=== PATIENT | male | born 1970 | race Caucasian/White ===

== ENCOUNTER 2020-01-24 22:17 | Emergency (ER) | payer MEDICARE, OTHER ==
[~2020-01-24] VITALS: Ht 172.7 cm; Wt 103.4 kg
[2020-01-24] MEDS ORDERED: Alprazolam1 MG PO (22:42)
[2020-01-24] MEDS ORDERED: Hydroxyzine HCl50 MG (22:42)
[2020-01-24] MEDS ORDERED: HYDROCODONE-AC1 EAC7 PO (22:43)
[2020-01-24] MEDS ORDERED: Ventolin5 MG/1 ML (22:43)
[2020-01-24] MEDS ORDERED: FLUTICASONE PRO16 GM (22:44)
[2020-01-24 23:02] LABS: BASOPHILS ABSOLUTE AUTO 0.04 K/mm3 (0.00-0.23); BASOPHILS PERCENT AUTO 1 % (0-2); EOSINOPHILS ABSOLUTE AUTO 0.14 K/mm3 (0.00-0.68); EOSINOPHILS PERCENT AUTO 2 % (0-6); Hematocrit 49.5 % (37.0-53.0); Hemoglobin 16.7 g/dL (13.5-17.5); IMMATURE GRAN ABSOLUTE AUTO 0.02 K/mm3 (0.00-0.10); IMMATURE GRAN PERCENT AUTO 0 % (0-1); LYMPHOCYTES ABSOLUTE AUTO 2.55 K/mm3 (0.84-5.20); LYMPHOCYTES PERCENT AUTO 34 % (21-46); MONOCYTES ABSOLUTE AUTO 0.63 K/mm3 (0.16-1.47); MONOCYTES PERCENT AUTO 9 % (4-13); Mean Corpuscular HGB 31.3 pg (26.0-34.0); Mean Corpuscular HGB Conc 33.7 g/dL (31.5-36.5); Mean Corpuscular Volume 93 fL (80-100); Mean Platelet Volume 8.9 fL (9.1-12.4); NEUTROPHILS ABSOLUTE AUTO 4.06 K/mm3 (1.96-9.15); NEUTROPHILS PERCENT AUTO 55 % (41-73); Platelet Count 256 K/mm3 (150-400); RDW Coefficient Variation 12.7 % (11.7-14.2); RDW Standard Deviation 43.7 fL (35.1-46.3); Red Blood Cell Count 5.34 M/mm3 (4.30-5.90); White Blood Cell Count 7.44 K/mm3 (4.00-11.30)
[2020-01-24 23:22] LABS: Alanine Aminotransfer (ALT/SGP 59 U/L (12-78); Albumin, Blood 3.5 g/dL (3.4-5.0); Alk Phos 68 U/L (50-136); Anion Gap 8 mmol/L (6-16); Aspartate Aminotrans (AST/SGOT 26 U/L (12-37); Bilirubin, Total 0.4 mg/dL (0.1-1.0); Blood Urea Nitrogen 13 mg/dL (8-24); Bun/Creatinine Ratio 15.5 (12.0-20.0); CO2, Blood 25 mmol/L (21-32); Calcium, Blood 8.4 mg/dL (8.5-10.1); Chloride, Blood 108 mmol/L (98-108); Creatinine, Blood 0.84 mg/dL (0.60-1.20); Globulin, Blood 3.4 g/dL (2.2-4.0); Glomerular Filtration Rate >60 (60-); Glucose, Blood 103 mg/dL (70-99); Potassium, Blood 3.5 mmol/L (3.5-5.5); Sodium, Blood 141 mmol/L (136-145); Total Protein, Blood 6.9 g/dL (6.4-8.2); Troponin I <0.015 ng/mL (0.000-0.040)
== END 2020-01-25 01:10 | disposition home or self-care (01) ==
LOC: ER 22:17
PROVIDERS: Emergency Medicine
DX: R07.9 Chest pain, unspecified (principal); R00.2 Palpitations; F32.9 Major depressive disorder, single episode, unspecified; F41.9 Anxiety disorder, unspecified; I10 Essential (primary) hypertension; F17.200 Nicotine dependence, unspecified, uncomplicated; Z88.4 Allergy status to anesthetic agent; Z79.899 Other long term (current) drug therapy
CPT/HCPCS: 36415; 71046; 80053; 84484; 85025; 93005; 93010; 99285-25

== ENCOUNTER 2021-07-20 11:43 | Emergency (ER) | payer MEDICARE, OTHER ==
[~2021-07-20] VITALS: Ht 170.2 cm; Wt 108.9 kg
[~2021-07-20 11:43] MED LIST: Alprazolam1 MG PO; FLUTICASONE PRO16 GM; HYDROCODONE-AC1 EAC7 PO; Hydroxyzine HCl50 MG; Ventolin5 MG/1 ML
[2021-07-20] MEDS ORDERED: LIDO700A20 TOP (13:06)
== END 2021-07-20 13:16 | disposition home or self-care (01) ==
LOC: ER 11:43
DX: S20.211A Contusion of right front wall of thorax, initial encounter (principal); I10 Essential (primary) hypertension; Z88.8 Allergy status to other drugs, medicaments and biological substances; Z79.899 Other long term (current) drug therapy; W18.2XXA Fall in (into) shower or empty bathtub, initial encounter
CPT/HCPCS: 71046; 96372; 99283-25; A9270; J1885

== ENCOUNTER 2023-02-03 08:50 | Day surgery (SDC) | payer MEDICARE, OTHER ==
[2023-02-03] VITALS (16 sets, daily range): BP systolic 103–142; BP diastolic 63–96
[~2023-02-03] VITALS: Ht 170.2 cm; Wt 113.9 kg
[~2023-02-03 08:50] MED LIST changes: +AMIT75 PO; +BUPR150ER PO; +Flovent Diskus50 MCG IH; +GABA300 PO; +HYDPAM50 PO; +LIDO700A20 TOP; +LOSA50 PO; +METO25ER PO; +Norco 10-325 T1 EACH PO; +ONDA4ODT MM
--- NOTE | 2023-02-03 10:04 | NUR ---
02/03/23 1004 Tawnya Gutierrez HISTORY, CHART, MEDICATIONS AND ALLERGIES REVIEWED BEFORE START OF PROCEDURE. PATIENT CONFIRMS NPO STATUS AND AGREES WITH SCHEDULED PROCEDURE. 3-LEAD EKG REVIEWED WITH PHYSICIAN PRIOR TO START OF PROCEDURE. MONITOR INTACT WITH CONTINUOUS PULSE OXIMETRY,CAPNOGRAPHY, 3-LEAD EKG, INTERMITTENT BP. SUPPLEMENTAL O2 TO BE TITRATED THROUGHOUT PROCEDURE TO MAINTAIN O2 SATURATION ABOVE 90%. PATIENT DETERMINED TO BE ASA APPROPRIATE FOR PROPOFOL SEDATION PRIOR TO START OF PROCEDURE BY .
--- NOTE | 2023-02-03 11:36 | NUR ---
Discharge instructions reviewed with patient. Patient verbalizes understanding. Copy given to patient to take home. Patient States Post-Procedure ride home has been arranged. Discharged via wheelchair to private car for ride home.
== END 2023-02-03 11:08 | disposition home or self-care (01) ==
LOC: ORSCMMR 08:50 → ORD 10:00 → ORSCMMR 11:08
PROVIDERS: Internal Medicine Gastroenterology
PROC: 0DBN8ZX Excision of Sigmoid Colon, Via Natural or Artificial Opening Endoscopic, Diagnostic (ICD-10-PCS; principal; 2023-02-03 10:00)
DX: Z12.11 Encounter for screening for malignant neoplasm of colon (principal); R19.5 Other fecal abnormalities; D12.5 Benign neoplasm of sigmoid colon; K63.5 Polyp of colon; F41.9 Anxiety disorder, unspecified; I10 Essential (primary) hypertension; E66.9 Obesity, unspecified; Z68.38 Body mass index [BMI] 38.0-38.9, adult; F17.210 Nicotine dependence, cigarettes, uncomplicated; Z79.899 Other long term (current) drug therapy
CPT/HCPCS: 88305; J2250; J2704; J7120

== ENCOUNTER 2024-07-03 13:31 | Inpatient (IN) | payer MEDICARE, OTHER ==
[2024-07-03] VITALS (15 sets, daily range): BP systolic 67–135; BP diastolic 42–112
[~2024-07-03] VITALS: Ht 172.7 cm; Wt 122.9 kg
[2024-07-03 14:28] LABS: BASOPHILS ABSOLUTE AUTO 0.05 K/mm3 (0.00-0.23); BASOPHILS PERCENT AUTO 1 % (0-2); EOSINOPHILS ABSOLUTE AUTO 0.09 K/mm3 (0.00-0.68); EOSINOPHILS PERCENT AUTO 1 % (0-6); Hematocrit 45.2 % (37.0-53.0); IMMATURE GRAN ABSOLUTE AUTO 0.04 K/mm3 (0.00-0.10); IMMATURE GRAN PERCENT AUTO 0 % (0-1); LYMPHOCYTES PERCENT AUTO 12 % (21-46); MONOCYTES ABSOLUTE AUTO 0.87 K/mm3 (0.16-1.47); MONOCYTES PERCENT AUTO 9 % (4-13); Mean Corpuscular HGB 32.6 pg (26.0-34.0); Mean Corpuscular HGB Conc 35.4 g/dL (31.5-36.5); Mean Corpuscular Volume 92 fL (80-100); Mean Platelet Volume 9.5 fL (9.1-12.4); NEUTROPHILS PERCENT AUTO 77 % (41-73); Platelet Count 280 K/mm3 (150-400); RDW Coefficient Variation 15.4 % (11.7-14.2); RDW Standard Deviation 50.5 fL (35.1-46.3); Red Blood Cell Count 4.91 M/mm3 (4.30-5.90); White Blood Cell Count 9.75 K/mm3 (4.00-11.30)
[2024-07-03 14:47] LABS: Albumin, Blood 3.3 g/dL (3.4-5.0); Albumin/Globulin Ratio 1.2 (0.8-1.8); Bilirubin, Total 1.6 mg/dL (0.1-1.0); Calcium, Blood 8.8 mg/dL (8.5-10.1); Creatinine, Blood 1.06 mg/dL (0.60-1.20); Globulin, Blood 2.8 g/dL (2.2-4.0); Potassium, Blood 4.3 mmol/L (3.5-5.5); Total Protein, Blood 6.1 g/dL (6.4-8.2)
[2024-07-03] MEDS ORDERED: dilTIAZem HCL 125 MG in Dextrose 5% 100 ML IV SCH (16:15)
[2024-07-03] MEDS ORDERED: Diltiazem HCl 5 MG / ML 5ML Vial IV ONE (16:15)
[2024-07-03] MEDS ORDERED: BUPROPION HCL200 M1 PO (17:25)
[2024-07-03] MEDS ORDERED: BREO ELLIPTA 11 EAC1 INH (17:25)
[2024-07-03] MEDS ORDERED: ATORVASTATIN CA20 MG PO (17:25)
[2024-07-03] MEDS ORDERED: Hydroxyzine HCl50 MG PO (17:26)
[2024-07-03] MEDS ORDERED: METOPROLOL TART5010 PO (17:27)
[2024-07-03] MEDS ORDERED: ALPRAZolam 0.5 MG Tab PO PRN (17:40)
[2024-07-03] MEDS ORDERED: Ondansetron HCl 2 MG / ML 2ML Vial IV PRN (17:40)
[2024-07-03] MEDS ORDERED: Albuterol 2.5 MG/3 ML VIAL INH PRN (17:40)
[2024-07-03] MEDS ORDERED: HYDROcodone 5-APAP 325 TAB PO PRN (17:45)
[2024-07-03] MEDS ORDERED: Metoprolol Tartrate 25 MG Tab PO SCH ×2 (18:00→21:00)
[2024-07-03] MEDS ORDERED: Furosemide 10 MG/ML 4ML Vial IV SCH (18:00)
--- NOTE | 2024-07-03 18:55 | NUR ---
PATIENT ADMIT TO PCU AT 1826. ABLE TO STAND AND TRANSFER TO BED. ALERT AND ORIENTED X4. DENIES DIZZINESS. TELE SHOWING AFIB. DENIES CHEST PAIN/PRESSURE/PALPITATIONS. SOB UPON TRANSFERING TO PCU BED. CARDIZEM GTT RUNNING AT 7.5 MG/HR UPON ADMIT. PATIENT SBP 120'S. WITH HR 120-140'S. THIS RN TITRATED CARDIZEM TO 10MG/HR, SEE FLOWSHEET CHARTING. PATIENT COMPLAINING OF NECK PAIN AND NAUSEA. ICE PACK PROVIDED FOR NECK PER PATIENT REQUEST AND IV ZOFRAN GIVEN FOR NAUSEA. PATIENT STATES NECK PAIN IS FROM SLEEPING ON ED BED. DENIES ABDOMINAL PAIN. SWOLLEN/TENDER/RED SCROTUM. PATIENT DENIES URINE RETENTION. STATES HE HAS NOT HAD A BOWEL MOVEMENT FOR A COUPLE DAYS BUT FEELS HUNGRY AND IS REQUESTING DINNER DESPITE NAUSEA. DINNER TRAY PROVIDED. NPO AT 9PM FOR FASTING LIPID PANEL IN AM. PUREWICK IN PLACE. BLOOD PRESSURE RE-CHECK AND TRENDING DOWN WITH SBP 70-90'S. HR REMAINS 120-130'S CARDIZEM TITRATED DOWN TO 5MG/HR. NIGHT NURSE TO BEDSIDE AND THIS RN REPORTED OFF.
[2024-07-03] MEDS ORDERED: NS 1,000 ML IV ONE ×2 (19:25→22:44)
[2024-07-03 19:50] LABS: Source, Urine Clean Catch
[2024-07-03 19:57] LABS: Appearance, Urine Clear (Clear); Bilirubin, Urine Neg (Neg); Blood, Urine Neg (Neg); Color, Urine Yellow (P-Yellow); Glucose Qualitative, Urine Neg (Neg); Ketones, Urine Neg (Neg); Leukocyte Esterase, Urine 1+ (Neg); Nitrite, Urine Neg (Neg); Protein, Urine 2+ (Neg); Urobilinogen, Urine 1+ (Normal)
[2024-07-03 20:06] LABS: Amorphous Light (0-Heavy); Bacteria Mod /hpf; Mucus Light (0-Heavy); Red Blood Cells, Urine 0-2 /hpf (0-2); Squamous Epithelial Cells Rare /hpf (Few); Transitional Epithelial Cells Rare /hpf (0-Rare)
[2024-07-03] MEDS ORDERED: Sennosides 8.6 MG Tab PO SCH (21:00)
[2024-07-03] MEDS ORDERED: buPROPion HCL 150 MG TAB.SR.12H PO SCH (21:00)
[2024-07-03] MEDS ORDERED: Amitriptyline HCl 25 MG Tab PO SCH (21:00)
[2024-07-03] MEDS ORDERED: EPINEPhrine HCl 0.1 MG/ML STE Water 10ML SYR IV ONE (21:02)
[2024-07-03] MEDS ORDERED: DOPamine 400 MG/Dextrose 250 ML Bag IV ONE (21:02)
[2024-07-03 21:18] LABS: U Amphetamine Screen Not Detected; U Barbituate Screen Not Detected; U Benzodiazapine Screen DETECTED; U Buprenorphine Screen Not Detected; U Cannabinoids Screen DETECTED; U Cocaine Screen Not Detected; U Methadone Screen Not Detected; U Methamphetamine Screen Not Detected; U Opiates Screen DETECTED; U Oxycodone Screen Not Detected; U Phencyclidine Screen Not Detected
[2024-07-03 21:59] LABS: Bun/Creatinine Ratio 14.4 (12.0-20.0); Calcium, Blood 8.2 mg/dL (8.5-10.1); Creatinine, Blood 1.32 mg/dL (0.60-1.20); Potassium, Blood 4.3 mmol/L (3.5-5.5)
--- NOTE | 2024-07-03 22:08 | NUR ---
AFTER RECEIVING REPORT FROM DAY SHIFT RN NOTICED PATIENT'S BLOOD PRESSURE TO BE LOW. 70/40'S. HEART IN THE 99-100'S. PATIENT STATED HE WAS NAUSEATED ALTHOUGH HE HAD RECEIVED 2 MG OF ZOFRAN RECENTLY. COMPLAINED OF HIS BELLY HURTING HIS NECK HURTING. NOT FEELING WELL. STATES "WHEN I CLOSE MY EYES ALL I SEE IS BLACK." TURNED OFF CARDIZEM DRIP. NOTIFIED OSCAR CHARGE NURSE OF FINDINGS. WE THEN NOTIFIED PULP ROLLER PROVIDER WHO CAME TO THE ROOM. IVF BOLUS INITIATED. NEW IV'S STARTED. LABS ORDERED DOPAMINE ORDERED AND STARTED, IV EPINEPHRINE 1 MG GIVEN O2 PER NC APPLIED SATURATIONS DROPPED TO THE 80'S. ICU TEAM ARRIVED ORDERS TO TRANSFER PATIENT TO ICU NOW FOR POSSIBLE CARDIOGENIC SHOCK. PATIENT REMAINED RESPONSIVE. BLOOD PRESSURE STARTED TO IMPROVE AFTER INTERVENTIONS. PATIENT WAS TRANSPORTED TO ICU 4 REPORT GIVEN TO TANGELA BINGHAM CARDIOGENIC SHOCK. . PATIENT REMAINED RESPONSIVE DURING THIS TIME. ORDER TO TRANSFER PATIENT TO ICU.
[2024-07-03] MEDS ORDERED: NS 1,000 ML IV SCH (22:45)
[2024-07-03] MEDS ORDERED: NS 250 ML IV ONE (22:45)
[2024-07-03] MEDS ORDERED: CeFAZolin Sodium 1,000 MG in NS 50 ML IV ONE (23:10)
[2024-07-04] VITALS (70 sets, daily range): BP systolic 72–160; BP diastolic 47–119
[2024-07-04] MEDS ORDERED: Morphine Sulfate 4 MG/1 ML Injection IV ONE (01:30)
[2024-07-04 03:47] LABS: Alanine Aminotransfer (ALT/SGP 217 U/L (12-78); Albumin/Globulin Ratio 1.2 (0.8-1.8); Alk Phos 96 U/L (50-136); Anion Gap 14 mmol/L (3-11); Aspartate Aminotrans (AST/SGOT 240 U/L (12-37); Bilirubin, Total 2.8 mg/dL (0.1-1.0); Blood Urea Nitrogen 21 mg/dL (8-24); Bun/Creatinine Ratio 11.7 (12.0-20.0); CHOL/HDL RATIO 3.6; CO2, Blood 21 mmol/L (21-32); Calcium, Blood 7.8 mg/dL (8.5-10.1); Chloride, Blood 93 mmol/L (98-108); Cholesterol 94 mg/dL (50-200); Globulin, Blood 2.6 g/dL (2.2-4.0); Glomerular Filtration Rate 44 (60-); Glucose, Blood 121 mg/dL (70-99); HDL Cholesterol 26 mg/dL (>39); LDL/HDL RATIO 2.1; Low Density Lipoprotein Chol 55 mg/dL (0-110); Potassium, Blood 5.8 mmol/L (3.5-5.5); Sodium, Blood 122 mmol/L (136-145); Total Protein, Blood 5.6 g/dL (6.4-8.2); Triglycerides 67 mg/dL (30-160); Very Low Density Lipoprot Chol 13 mg/dL (6-32)
--- NOTE | 2024-07-04 06:10 | NUR ---
SHIFT SUMMARY PT ARRIVES AT BEGINNING OF SHIFT AN EMERGENT TRANSFER FROM PCU. ON ARRIVAL, PT BP IS LOW AND SKIN IS FLUSHED. PT RESPONSIVE TO QUESTIONS BUT HAS SOME CONFUSION WITH TIME. PTs HEART RHYTHM AND RATE IS AFIB IN THE 130s TO 150s AND LOW BP WITH MAPS BELOW 65. PTs DOBUTAMINE IS STOPPED AND PT PUT ONTO LEVOPHED. THIS NURSE IS TOLD AND AGREES WITH CASH SHORTAGE INVESTIGATOR THAT ISSUE IS LIKELY UNDIAGNOSED CHF EXACERBATED BY CARDIZEM DRIP. PT WAS TAKEN OFF CARDIZEM PRIOR TO ARRIVAL TO UNIT. PT EVENTUALLY CLEARS AND IS ABLE TO ANSWER QUESTIONS A&OX4. PT REQUESTS SOME FOOD PRIOR TO BEING NPO AND IS ABLE TO EAT PEACHES. AT APPROXIMATELY 2200 PT BEGINS TO FEEL SYMPTONS SIMILAR TO THOSE HE HAD PRIOR TO EVENT IN PCU THAT BROUGHT HIM TO ICU. THIS NURSE CONTACTS CASH SHORTAGE INVESTIGATOR FOR ORDERS AT WHICH POINT EKG AND TROPONIN ARE ORDERED. NEEDS FOR LEVOPHED CONTINUE TO RISE AND IT IS DECIDED THAT A CENTRAL LINE WILL BE NECESSARY. CENTRAL LINE IS PLACED AND PT RESPONDS POSITIVELY TO INCRESE IN LEVOPHED. CT PE STUDY IS ALSO OBTAINED ON PHYSICIANS ORDERS. PT IS NOW A&O X 4. PT IS RESTING IN ROOM WITH SOME COMPLAINTS OF CHRONIC BACK PAIN. WILL CONTINUE TO MONITOR UNTIL REPORT PASSED TO DAY SHIFT TEAM.
--- NOTE | 2024-07-04 07:00 | NUR ---
ASSUMPTION OF CARE PT RECEIVING LEVOPHED 16MCG/MIN AND NS 75ML/HR. HE WAKENS EASILY TO VERBAL STIMULI. HE IS ON 2L NC. PT REPORTS FEELING BETTER THAN LAST NIGHT. AFIB ON MONITOR WITH RATE IN 100S-130S. BED IN LOW POSITION, CALL LIGHT WITHIN REACH.
--- NOTE | 2024-07-04 08:30 | NUR ---
BRUNILDA MILLER TRANSFER, PT CONCERNED ABOUT [facility], CALLED SECURITY WHO TOOK IT TO PLACE IN [facility].
[2024-07-04] MEDS ORDERED: Enoxaparin 40 MG/0.4 ML SYR SC SCH (09:00)
[2024-07-04] MEDS ORDERED: Rivaroxaban 10 MG Tab PO SCH ×2 (09:00)
[2024-07-04] MEDS ORDERED: Calcium Carbonate 500 MG Tab Chew PO PRN (13:20)
[2024-07-04] MEDS ORDERED: Empagliflozin 10 MG TAB PO SCH (14:00)
[2024-07-04] MEDS ORDERED: Spironolactone 12.5 MG TAB PO SCH (14:00)
[2024-07-04] MEDS ORDERED: Famotidine 10 MG/ML 2ML Vial IV ONE (14:40)
[2024-07-04] MEDS ORDERED: Mag Hydrox/Al Hydrox/Simeth 18 ML,Lidocaine 2% Viscous Soln 9 ML,Atropine/Scopalam/Hyos... PO ONE (14:50)
--- NOTE | 2024-07-04 15:00 | NUR ---
UPDATE PT C/O 10/19 CHEST PAIN. PT PREVIOUSLY C/O HEARTBURN AND MEDICATED WITH TUMS PER EMAR. WHEN ASKED TO DESCRIBE THE CHEST PAIN HE STS IT FEELS LIKE "BAD HEARTBURN". HE POINTS TO MIDSTERUM AND RADIATES INTERMITTENTLY TO R SIDE. PAIN DOES NOT CHANGE WITH INSPIRATION/EXPIRATION OR MOVEMENT. PT REQUESTS PEPCID THAT HE TAKES AT HOME. PROVIDER NOTIFIED AND ORDER RECEIVED. REPEAT EKG DONE.
--- NOTE | 2024-07-04 15:45 | NUR ---
Met with pt this morning, he appeared SOB and anxious. He stated he was going to leave because his dog was home alone and needed to be cared for. I spent time brain-storming with him and we came up with a plan for his dog. He has a neighbor to call who knows his dog well and will be able to feed him and look after him while the patient is in the hospital. Pt states he is shocked to hear about the heart failure. He is willing to continue with conversations on lifestyle changes. Plan to see pt again tomorrow.
[2024-07-04] MEDS ORDERED: Furosemide 10 MG/ML 4ML Vial IV SCH (18:00)
--- NOTE | 2024-07-04 18:34 | NUR ---
SHIFT SUMMARY PT RECEIVING LEVOPHED 4MCG/MIN. PT IS A&OX4. HE PARTICIPATES IN CONVERSATION AND CARE ABLE. HE HAS BEEN ON RA THROUGHOUT THE DAY. HE BECOMES DYSPNEIC WITH EXERTION. AFIB ON MONITOR WITH RATE IN 120S-130S. LEVOPHED TITRATED DOWN THROUGHOUT THE SHIFT. PT TOLERATING PO DIET WELL. EARLIER IN SHIFT PT C/O HEARTBURN WHICH RESOLVED AFTER PEPCID. PT HAS BEEN ABLE TO VOID SEVERAL TIMES IN THE URINAL. BED IN LOW POSITION, CALL LIGHT WITHIN REACH.
--- NOTE | 2024-07-04 20:11 | NUR ---
ASSUME CARE: BEDSIDE REPORT RECIEVED FROM CASSIE BINGHAM. PT A/Ox4 AND ABLE TO MAKE NEEDS KNOWN. SBP 110s, MAP>65. LEVOPHED GTT INTIALLY AT 4 MCG/MIN, SEE FLOWSHEET FOR TITRATIONS. MONITOR SHOWS AFIB RYTHM RATE 120s-130s. CASSIE RN STATES IS AWARE OF RATE. SPO2>90% ON RA. PT DENIES CP OR PRESSURE. PT ABLE TO AMBULATE WITH ASSISTANCE AND USE URINAL AT BEDSIDE WITH ASSISTANCE. CALL LIGHT IN REACH. WILL UPDATED NEEDED.
[2024-07-04 22:51] LABS: Bun/Creatinine Ratio 16.1 (12.0-20.0); Calcium, Blood 8.1 mg/dL (8.5-10.1); Creatinine, Blood 1.61 mg/dL (0.60-1.20); Potassium, Blood 4.3 mmol/L (3.5-5.5)
[2024-07-05] VITALS (33 sets, daily range): BP systolic 87–160; BP diastolic 56–126
--- NOTE | 2024-07-05 05:28 | NUR ---
SHIFT SUMMARY: PT A/Ox4 AND PLEASANT W/CARE THROUGHOUT THE NIGHT. SBP 90s-100s, MAP>65. LEVOPHED GTT TITRATED OFF. MONITOR SHOWS AFIB W/ RATE OF 120s-140s, OCCASIONAL RATE UP TO 160s. SPO2>90% ON RA, PT DESATS WITH SLEEP TO 85-87%, 2L NC PLACED FOR SLEEP. PT ABLE TO STAND AT BEDSIDE AND USE URINAL W/ASSISTANCE. CALL LIGHT IN REACH. WILL REPORT TO ONCOMING RN.
[2024-07-05 08:11] LABS: BASOPHILS ABSOLUTE AUTO 0.03 K/mm3 (0.00-0.23); BASOPHILS PERCENT AUTO 0 % (0-2); EOSINOPHILS ABSOLUTE AUTO 0.12 K/mm3 (0.00-0.68); EOSINOPHILS PERCENT AUTO 2 % (0-6); Hematocrit 44.3 % (37.0-53.0); IMMATURE GRAN ABSOLUTE AUTO 0.03 K/mm3 (0.00-0.10); IMMATURE GRAN PERCENT AUTO 0 % (0-1); LYMPHOCYTES ABSOLUTE AUTO 1.37 K/mm3 (0.84-5.20); LYMPHOCYTES PERCENT AUTO 18 % (21-46); MONOCYTES ABSOLUTE AUTO 0.65 K/mm3 (0.16-1.47); MONOCYTES PERCENT AUTO 9 % (4-13); Mean Corpuscular HGB 31.9 pg (26.0-34.0); Mean Corpuscular HGB Conc 33.9 g/dL (31.5-36.5); Mean Corpuscular Volume 94 fL (80-100); Mean Platelet Volume 9.3 fL (9.1-12.4); NEUTROPHILS ABSOLUTE AUTO 5.36 K/mm3 (1.96-9.15); NEUTROPHILS PERCENT AUTO 71 % (41-73); Platelet Count 185 K/mm3 (150-400); RDW Coefficient Variation 15.3 % (11.7-14.2); White Blood Cell Count 7.56 K/mm3 (4.00-11.30)
[2024-07-05 08:23] LABS: Albumin/Globulin Ratio 1.2 (0.8-1.8); Bilirubin, Total 1.3 mg/dL (0.1-1.0); Bun/Creatinine Ratio 17.9 (12.0-20.0); Creatinine, Blood 1.4 mg/dL (0.60-1.20); Globulin, Blood 2.4 g/dL (2.2-4.0); Potassium, Blood 4.2 mmol/L (3.5-5.5); Total Protein, Blood 5.4 g/dL (6.4-8.2)
[2024-07-05] MEDS ORDERED: Furosemide 10 MG / ML 2ML Vial IV SCH (09:00)
--- NOTE | 2024-07-05 18:22 | NUR ---
SUMMARY PT A/O X4. OOB TO CHAIR AND TO STAND TO USE THE URINAL SEVERAL TIMES. GETTING MORE STEADY THE DAY GOES ON. ON AMIODORONE GTT FOR AFIB RVR. RATE STILL IN THE 120'S. PT HAS SWELLING OF LEGS AND SCROTUM IS VERY SWOLLEN. GETTING LASIX. TRANSFERING TO PCU 13, REPORT GIVEN TO NADINE BINGHAM.
--- NOTE | 2024-07-05 20:00 | NUR ---
ASSUMPTION OF CARE NOTE A/Ox4 AND COOPERATIVE WITH CARE. ANSWERS QUESTIONS APPROPRIATELY AND ABLE TO MAKE HIS NEEDS KNOWN. CARDIAC, TELE SHOWS AFIB WITH HR RANGING 120-140'S. INCREASES TO 50-160'S WITH MINIMAL EXERTION. DENIES CP, PRESSURE OR PALPITATIONS. BLE WELL SCROTAL EDEMA NOTED. RESPIRATORY, MAINTAINS SPO2 >92% ON RA WITH NO REPORTS OF SOB OR DYSPNEA WHILE AT REST. REPORTS MINOR SOB WITH EXERTION WHEN HR IS ELEVATED. GI/, ABLE TO USE URINAL AT BEDSIDE PRODUCING CLEAR YELLOW URINE. ABD WITH MODERATE DISTENTION NOTED, BUT DENIES N/V/D OR ABD PAIN. SKIN OVERALL C/D/I. AMIO gtt INFUSING IN LFA PIV ORDERED PER EMAR. VSS, NADN OF THIS NOTE.
[2024-07-06] VITALS (9 sets, daily range): BP systolic 103–143; BP diastolic 67–110
[2024-07-06 04:05] LABS: BASOPHILS ABSOLUTE AUTO 0.05 K/mm3 (0.00-0.23); BASOPHILS PERCENT AUTO 1 % (0-2); EOSINOPHILS ABSOLUTE AUTO 0.04 K/mm3 (0.00-0.68); EOSINOPHILS PERCENT AUTO 1 % (0-6); Hematocrit 43.5 % (37.0-53.0); Hemoglobin 15.5 g/dL (13.5-17.5); IMMATURE GRAN ABSOLUTE AUTO 0.05 K/mm3 (0.00-0.10); IMMATURE GRAN PERCENT AUTO 1 % (0-1); LYMPHOCYTES ABSOLUTE AUTO 1.18 K/mm3 (0.84-5.20); LYMPHOCYTES PERCENT AUTO 14 % (21-46); MONOCYTES PERCENT AUTO 8 % (4-13); Mean Corpuscular HGB 32.6 pg (26.0-34.0); Mean Corpuscular HGB Conc 35.6 g/dL (31.5-36.5); Mean Corpuscular Volume 91 fL (80-100); Mean Platelet Volume 9.7 fL (9.1-12.4); NEUTROPHILS ABSOLUTE AUTO 6.55 K/mm3 (1.96-9.15); NEUTROPHILS PERCENT AUTO 76 % (41-73); Platelet Count 183 K/mm3 (150-400); RDW Coefficient Variation 15.3 % (11.7-14.2); RDW Standard Deviation 50.4 fL (35.1-46.3); Red Blood Cell Count 4.76 M/mm3 (4.30-5.90); White Blood Cell Count 8.57 K/mm3 (4.00-11.30)
[2024-07-06 04:29] LABS: Bun/Creatinine Ratio 20.5 (12.0-20.0); Calcium, Blood 8.2 mg/dL (8.5-10.1); Creatinine, Blood 1.22 mg/dL (0.60-1.20); Potassium, Blood 3.8 mmol/L (3.5-5.5)
--- NOTE | 2024-07-06 05:28 | NUR ---
SHIFT SUMMARY NO ACUTE CHANGES SINCE ASSUMPTION OF CARE NOTE. SEE NOTE FOR DETAILS. CONTINUES TO BE AFIB RANGING 120-140'S WITH INTERMITTENT JUMPS INTO 150-160'S WITH MINIMAL EXERTION. CONTINUES TO DENY CP, PRESSURE OR PALPTIATIONS DURING THESE EPISODES. RESTLESS DURING THE NIGHT ATTEMPTING TO GET COMFORTABLE. AMIO gtt CONTINUES TO INFUSE ORDERED PER EMAR. NO OTHER ORDERS AT THIS TIME, WILL REPORT TO ONCOMING RN. [place] OF THIS NOTE.
--- NOTE | 2024-07-06 08:29 | NUR ---
AM NOTE PT ALERT, ORIENTED X4; ABLE TO MAKE NEEDS KNOWN, CALM AND COOPERATIVE WITH CARE. PT RESTING IN BED, UP IND IN ROOM. PT DENIES PAIN, CHEST PAIN/PRESSURE, SOB, NAUSEA, DIZZINESS AND NUMB/TINGLING. TELE AFIB 120-140', BP STABLE, AMIO GTT INFUSING PER ORDERS. ABD MILD DISTENTION, SOFT, NONTENTER WITH HYPOACTIVE BT. SPO2 >90% ON RA, WHILE SLEEPING BREATHING SHALLOW. EDEMA NOTED TO BLE +3, BUE AND SCROTUM. OTHER VSS. NO OTHER ACUTE CHANGES NOTED. PT REMAINS NPO OTHER THAN WATER FOR STRESS TEST. PT UNABLE TO SLEEP LAST NIGHT ASKING FOR LESS FREQUENT VISITS THIS AM SO ATTEMPT TO SLEEP. WILL CONITNUE TO MONITOR.
[2024-07-06] MEDS ORDERED: Amiodarone HCl 200 MG Tab PO SCH (10:00)
[2024-07-06] MEDS ORDERED: Metoprolol Succinate 50 MG TABCR PO SCH (18:00)
[2024-07-06] MEDS ORDERED: Furosemide 10 MG/ML 4ML Vial IV SCH (18:00)
--- NOTE | 2024-07-06 18:05 | NUR ---
Shift Summary No acute changes during shift. More alert, this afternoon, slept most of the morning. First part of the stress test completed this am. Plans for NPO after breakfast, other than water; no caffine after 1900 this evening. Other vss. No other acute changes noted. Will continue to monitor.
[2024-07-07] VITALS (25 sets, daily range): BP systolic 80–137; BP diastolic 40–101
[2024-07-07 02:31] LABS: Bun/Creatinine Ratio 19.5 (12.0-20.0); Calcium, Blood 8.7 mg/dL (8.5-10.1); Creatinine, Blood 1.33 mg/dL (0.60-1.20); Potassium, Blood 3.9 mmol/L (3.5-5.5)
--- NOTE | 2024-07-07 02:37 | NUR ---
UPDATE AT AROUND 2230 PT STARTED TO BECOME MORE CONFUSED AND IMPULSIVE. PT STARTED TO GET OUT OF BED WITHOUT USING CALL LIGHT AND ATTEMPTING TO FIND DOG. PT UNABLE TO FOLLOW SIMPLE DIRECTIONS SUCH LAYAING INBED, PT STOOD TO WALK TO CHAIR INSTEAD. PT ACKOWLEDGES THAT HE IS FEELING "FOGGY HEADED". PT IS ABLE TO ANSWER ALL ORIENTATION QUESTIONS CORRECTLY. PT HEART RATE CONSISTANTLY 130S- 160S WITH ACTIVITY. PT BP AVERAGING 100S SYSTOLIC NOW. PT SKIN MOTTLED ON ABD, BLE, AND ARMS. CRACKLES AT THE BASES OF PT LUNGS. SANKET TO PT ROOM AFTER REVEIWING CHART. CONCERNS FOR PT NOT PERFUSING CORRECTLY. MOVING PT TO ICU. PCU AND ICU CHARGE NURSE AWARE. REPORT GIVEN TO VLADIMIR BINGHAM. PT TOLERATED MOVE WELL.
[2024-07-07 02:48] LABS: BASOPHILS ABSOLUTE AUTO 0.06 K/mm3 (0.00-0.23); BASOPHILS PERCENT AUTO 1 % (0-2); EOSINOPHILS ABSOLUTE AUTO 0.04 K/mm3 (0.00-0.68); EOSINOPHILS PERCENT AUTO 0 % (0-6); Hematocrit 51.2 % (37.0-53.0); Hemoglobin 17.7 g/dL (13.5-17.5); IMMATURE GRAN ABSOLUTE AUTO 0.09 K/mm3 (0.00-0.10); IMMATURE GRAN PERCENT AUTO 1 % (0-1); LYMPHOCYTES ABSOLUTE AUTO 1.15 K/mm3 (0.84-5.20); LYMPHOCYTES PERCENT AUTO 11 % (21-46); MONOCYTES ABSOLUTE AUTO 0.82 K/mm3 (0.16-1.47); MONOCYTES PERCENT AUTO 8 % (4-13); Mean Corpuscular HGB 32.1 pg (26.0-34.0); Mean Corpuscular HGB Conc 34.6 g/dL (31.5-36.5); Mean Corpuscular Volume 93 fL (80-100); Mean Platelet Volume 9.3 fL (9.1-12.4); NEUTROPHILS ABSOLUTE AUTO 8.19 K/mm3 (1.96-9.15); NEUTROPHILS PERCENT AUTO 79 % (41-73); Platelet Count 180 K/mm3 (150-400); RDW Coefficient Variation 15.7 % (11.7-14.2); RDW Standard Deviation 52.9 fL (35.1-46.3); Red Blood Cell Count 5.52 M/mm3 (4.30-5.90); White Blood Cell Count 10.35 K/mm3 (4.00-11.30)
[2024-07-07 03:41] LABS: PCO2 Venous 36.9 mmHg (38-42); pH Blood Venous 7.43 (7.34-7.37)
[2024-07-07 03:42] LABS: Base Excess Venous 0.4 mmol/L; Bicarbonate Venous 24.7 mmol/L (24.0-30.0)
[2024-07-07] MEDS ORDERED: LORazepam 2 MG/ML 1ML Injection IV ONE (04:15)
[2024-07-07] MEDS ORDERED: Digoxin 0.25 MG/ML 2ML Amp IV ONE (04:50)
[2024-07-07] MEDS ORDERED: NS 250 ML IV ONE (06:40)
--- NOTE | 2024-07-07 08:40 | NUR ---
[place] of care: Patient alert & oriented to person, place, time. Confused as to why he is in the hospital. Pleasant & cooperative. He is in normal sinus tach in the low 100s, SBP 115. Does have significant bilat lower extremity edema as well as scrotal edema. Pulses all palpable but weak in feet. On room air with clear lung sounds. Voiding in urinal. NPO pending stress test later today. PIV x1 in place. Will continue to monitor.
[2024-07-07] MEDS ORDERED: Furosemide 10 MG / ML 2ML Vial IV SCH (09:00)
[2024-07-07 09:20] LABS: Bun/Creatinine Ratio 21.4 (12.0-20.0); Calcium, Blood 8.4 mg/dL (8.5-10.1); Creatinine, Blood 1.26 mg/dL (0.60-1.20); Potassium, Blood 4.5 mmol/L (3.5-5.5)
[2024-07-07] MEDS ORDERED: Lidocaine 2% Jelly Uro-Jet UR ONE (10:30)
[2024-07-07] MEDS ORDERED: Digoxin 0.25 MG/ML 2ML Amp IV SCH (11:00)
[2024-07-07] MEDS ORDERED: Regadenoson 0.4 MG/5 ML SYRINGE ONE (12:25)
[2024-07-07] MEDS ORDERED: Caffeine Citrated 60 MG/3 ML Vial ONE (12:25)
--- NOTE | 2024-07-07 15:32 | NUR ---
Patient returned back from NM test and stated he wanted to leave. This RN discussed plan with patient and he kindly stated that he has stayed longer than he has wanted and since the images have been obtained, he would like to leave. Call placed to Dr Mcdermott to notify, who quickly presented to bedside to discuss with patient. Patient adamantly stated he wanted to leave. He signed AMA paperwork and is currently looking for a contact to pick him up.
--- NOTE | 2024-07-07 16:05 | NUR ---
Patient decided to leave AMA. Dr. Mcdermott notified and came to speak to patient. Pt advised on policy regarding leaving AMA & verbalized understanding. Paperwork signed. Vital signs stable prior to discharge. Escorted out in wheelchair.
[2024-07-08] MEDS ORDERED: Digoxin 0.25 MG Tab PO SCH (09:00)
== END 2024-07-07 15:55 | disposition left against medical advice (07) | DRG 291 ==
LOC: ER 13:31 → ERHOLD 15:44 → ICUE 15:44 → PCU 18:26 → ICUE 20:12 → PCU 07-05 18:09 → ICUE 07-07 02:56
PROVIDERS: Family Medicine; Internal Medicine; Nurse Practitioner Acute Care; Physician Assistant; Student in an Organized Health Care Education/Training Program; ADMIT Family Medicine
PROC: 3E033XZ Introduction of Vasopressor into Peripheral Vein, Percutaneous Approach (ICD-10-PCS; principal; 2024-07-03)
PROC: 02HV33Z Insertion of Infusion Device into Superior Vena Cava, Percutaneous Approach (ICD-10-PCS; 2024-07-03)
DX: I11.0 Hypertensive heart disease with heart failure (principal); I50.23 Acute on chronic systolic (congestive) heart failure; R57.0 Cardiogenic shock; N17.9 Acute kidney failure, unspecified; E87.1 Hypo-osmolality and hyponatremia; E87.21 Acute metabolic acidosis; I47.20 Ventricular tachycardia, unspecified; I48.91 Unspecified atrial fibrillation; R74.01 Elevation of levels of liver transaminase levels; M54.9 Dorsalgia, unspecified; G89.29 Other chronic pain; I95.2 Hypotension due to drugs; T46.1X5A Adverse effect of calcium-channel blockers, initial encounter; Z53.29 Procedure and treatment not carried out because of patient's decision for other reasons; F43.10 Post-traumatic stress disorder, unspecified; F41.9 Anxiety disorder, unspecified; F32.A Depression, unspecified; E78.5 Hyperlipidemia, unspecified; E66.813 Obesity, class 3; Z98.890 Other specified postprocedural states; Z87.891 Personal history of nicotine dependence; Z79.899 Other long term (current) drug therapy; Z88.5 Allergy status to narcotic agent; I42.0 Dilated cardiomyopathy
CPT/HCPCS: 36415; 36556; 71045; 71260; 76870; 78452; 80048; 80053; 80061; 81001; 82140; 82803; 82947; 83036; 83605; 83735; 83880; 84145; 84443; 84484; 85025; 87086; 93005; 93010; 93017; 94760; 96372; 96374; 96375; 96376; 99285-25; A9270; A9500; C1751; C8929; G0378; J0171; J0282; J0690; J0706; J1160; J1265; J1650; J1940; J2060; J2270; J2405; J2785; J7030; J7050; J7060; Q9957; Q9967

== ENCOUNTER 2024-07-25 10:15 | Inpatient (IN) | payer MEDICARE, OTHER ==
[~2024-07-25] VITALS: Wt 70.9 kg
[~2024-07-25 10:15] MED LIST changes: +ATORVASTATIN CA20 MG PO; +BREO ELLIPTA 11 EAC1 INH; +BUPROPION HCL200 M1 PO; +Hydroxyzine HCl50 MG PO; +METO100 PO; -Norco 10-325 T1 EACH PO; +Norco 5-325 Ta1 EACH PO
[2024-07-25] MEDS ORDERED: FURO40 PO (16:39)
[2024-07-25] MEDS ORDERED: POTA10T PO (16:40)
--- NOTE | 2024-07-25 16:43 | NUR ---
ADMISSION: PT DIRECT ADMIT FROM TO PCU 12 @1643. PT ALERT AND ORIENTED X4, ABLE TO FOLLOW COMMANDS AND MAKE NEEDS KNOWN. ANXIOUS AT TIMES. STRENGTH EQUAL BILATERALLY. BP STABLE. HR AFIB 190'S- CARDIOLOGY CONSULTED. PLAN FOR JN CARDIOVERSION IN AM. DR OLIVER AND RESIDENT AT BEDSIDE AT THIS TIME. AFEBRILE. SPO2 >96% ON ROOM AIR. LUNG SOUNDS CLEAR IN UPPER, DIM IN BASES. ABD DISTENDED, BOWEL SOUNDS +. ABDOMEN SLIGHTLY DISCOLORED, PT STATES BASELINE. +3 EDEMA NOTED IN BLE. PULSES PALPABLE THROUGHOUT. PT CONT OF URINE/BOWEL. PT NPO @0000 FOR PROCEDURE IN AM. PT ORIENTED TO ROOM AND CALL LIGHT SYSTEM. BED IN LOW, CALL LIGHT IN REACH.
[2024-07-25 16:48] VITALS: BP 132/104
[2024-07-25] MEDS ORDERED: Furosemide 10 MG/ML 4ML Vial IV SCH (17:00)
[2024-07-25] MEDS ORDERED: Metoprolol Succinate 50 MG TABCR PO SCH (17:00)
[2024-07-25] MEDS ORDERED: Metoprolol Succinate 25 MG TABCR PO ONE (17:30)
[2024-07-25] MEDS ORDERED: MethylPREDNISolone Sod Succ 125 MG Vial IV STA (17:48)
[2024-07-25] MEDS ORDERED: DiphenhydrAMINE HCl 50 MG/ML 1ML Vial IV STA (17:49)
[2024-07-25] MEDS ORDERED: Famotidine 10 MG/ML 2ML Vial IV STA (17:49)
[2024-07-25 17:52] LABS: BASOPHILS ABSOLUTE AUTO 0.04 K/mm3 (0.00-0.23); BASOPHILS PERCENT AUTO 1 % (0-2); EOSINOPHILS ABSOLUTE AUTO 0.13 K/mm3 (0.00-0.68); EOSINOPHILS PERCENT AUTO 2 % (0-6); Hematocrit 46.4 % (37.0-53.0); Hemoglobin 15.9 g/dL (13.5-17.5); IMMATURE GRAN ABSOLUTE AUTO 0.02 K/mm3 (0.00-0.10); IMMATURE GRAN PERCENT AUTO 0 % (0-1); LYMPHOCYTES PERCENT AUTO 24 % (21-46); MONOCYTES ABSOLUTE AUTO 0.77 K/mm3 (0.16-1.47); MONOCYTES PERCENT AUTO 10 % (4-13); Mean Corpuscular HGB 31.9 pg (26.0-34.0); Mean Corpuscular HGB Conc 34.3 g/dL (31.5-36.5); Mean Corpuscular Volume 93 fL (80-100); Mean Platelet Volume 10.4 fL (9.1-12.4); NEUTROPHILS ABSOLUTE AUTO 4.77 K/mm3 (1.96-9.15); NEUTROPHILS PERCENT AUTO 63 % (41-73); Platelet Count 266 K/mm3 (150-400); RDW Coefficient Variation 16.6 % (11.7-14.2); RDW Standard Deviation 55.2 fL (35.1-46.3); Red Blood Cell Count 4.99 M/mm3 (4.30-5.90); White Blood Cell Count 7.53 K/mm3 (4.00-11.30)
[2024-07-25] MEDS ORDERED: DiphenhydrAMINE HCl 50 MG/ML 1ML Vial IV PRN (18:00)
--- NOTE | 2024-07-25 18:02 | NUR ---
UPDATE ORDERS RECEIVED FOR AMIO BOLUS. THIS RN STARTED AMIO BOLUS AT APPROX 1750. PT BECOMING IMMEEDIATELY FLUSHED, WARM TO TOUCH. PT COUGHING, EXPRESSING TO THIS RN "IT IS BECOMING HARD TO BREATH" AMIO BOLUS STOPPED, IV LINE FLUSHED. X RAY PHYSICIAN AT BEDSIDE. NON REBREATHER PLACED ON PT. BLOOD PRESSURE AND SPO2 STABLE. CALL PLACED TO BOTH ASSEMBLER DC FIELD RING AND HOSPITALIST. AMIO D/C. NEW ORDERS PLACED FOR ADVERSE REACTION. ASSEMBLER DC FIELD RING TO ROUND ON PT AFTER CLINIC.
[2024-07-25 18:17] LABS: Albumin, Blood 3.5 g/dL (3.4-5.0); Albumin/Globulin Ratio 1.1 (0.8-1.8); Bun/Creatinine Ratio 10.3 (12.0-20.0); Calcium, Blood 9.3 mg/dL (8.5-10.1); Creatinine, Blood 1.74 mg/dL (0.60-1.20); Globulin, Blood 3.3 g/dL (2.2-4.0); Magnesium, Blood 1.3 mg/dL (1.6-2.4); Potassium, Blood 3.6 mmol/L (3.5-5.5); Total Protein, Blood 6.8 g/dL (6.4-8.2)
[2024-07-25] MEDS ORDERED: Magnesium Sul 4 GM/Water100 ML 100 ML IV ONE (18:35)
[2024-07-25] MEDS ORDERED: Potassium Chloride 40 MEQ in NS 250 ML IV ONE (18:45)
--- NOTE | 2024-07-25 19:48 | NUR ---
PHYSICIAN COMMUNICATION CONTACTED TOGGLE PRESS FOLDER AND FEEDER RESIDENT, DR MIKE, TO NOTIFY HER THAT THE PATIENT IS EXPERIENCING BACK PAIN WHICH IS CHRONIC. ASKED IF WE CAN RESTART HIS HOME PAIN MEDS, DR MIKE OKAYED ORDERS.
[2024-07-25] MEDS ORDERED: HYDROcodone 10-APAP 325 TAB PO PRN (19:50)
[2024-07-25] MEDS ORDERED: Lidocaine 4% 1 Patch TOP SCH (19:50)
[2024-07-25 20:23] VITALS: BP 129/106
[2024-07-25] MEDS ORDERED: Apixaban 5 MG Tab PO SCH (21:00)
[2024-07-25] MEDS ORDERED: Famotidine 10 MG/ML 2ML Vial IV SCH (21:00)
[2024-07-25] MEDS ORDERED: Propofol 10mg/ml 20 ml Vial (Procedural) IV ONE (21:12)
[2024-07-25] MEDS ORDERED: Potassium Chloride 20 MEQ TabCR PO ONE (22:35)
--- NOTE | 2024-07-25 22:35 | NUR ---
PHYSICIAN COMMUNICATION CONTACTED DR MIKE TO NOTIFY HER THAT THE PATIENT WAS UNABLE TO TOLERATE IV POTASSIUM AND ASKED IF THEY WOULD LIKE IT TO BE GIVEN PO INSTEAD. ONE TIME DOSE 40 MEQ POTASSIUM ORDERED. ALSO NOTIFIED HER THAT THE PATIENT HAS HAD SEVERAL RUNS OF V TACH, PATIENT ASYMPTOMATIC. WILL CONTINUE TO MONITOR.
[2024-07-25] MEDS ORDERED: Digoxin 0.25 MG/ML 2ML Amp IV ONE (23:05)
--- NOTE | 2024-07-25 23:05 | NUR ---
PHYSICIAN COMMUNICATION CONTACTED DR SOLIMAN TO NOTIFY HIM THAT THE PATIENT'S HEART RATE WAS STILL IN THE 160'S-180'S. DR SOLIMAN ORDERED A ONE TIME DOSE OF 0.25 MG IV DIGOXIN NOW AND IN THREE HOURS, IF THE HEART RATE IS STILL GREATER THAN 100 TO GIVE AN ADDITIONAL DOSE OF 0.25 MG IV DIGOXIN.
[2024-07-25 23:16] VITALS: BP 126/86
[2024-07-26] VITALS (34 sets, daily range): BP systolic 81–139; BP diastolic 61–108
[2024-07-26] MEDS ORDERED: Digoxin 0.25 MG/ML 2ML Amp IV ONE (04:05)
[2024-07-26 04:12] LABS: BASOPHILS PERCENT AUTO 0 % (0-2); EOSINOPHILS PERCENT AUTO 0 % (0-6); Hematocrit 44.1 % (37.0-53.0); Hemoglobin 14.7 g/dL (13.5-17.5); IMMATURE GRAN ABSOLUTE AUTO 0.02 K/mm3 (0.00-0.10); IMMATURE GRAN PERCENT AUTO 0 % (0-1); LYMPHOCYTES ABSOLUTE AUTO 0.53 K/mm3 (0.84-5.20); LYMPHOCYTES PERCENT AUTO 11 % (21-46); MONOCYTES ABSOLUTE AUTO 0.11 K/mm3 (0.16-1.47); MONOCYTES PERCENT AUTO 2 % (4-13); Mean Corpuscular HGB 30.9 pg (26.0-34.0); Mean Corpuscular HGB Conc 33.3 g/dL (31.5-36.5); Mean Corpuscular Volume 93 fL (80-100); NEUTROPHILS ABSOLUTE AUTO 3.98 K/mm3 (1.96-9.15); NEUTROPHILS PERCENT AUTO 86 % (41-73); Platelet Count 245 K/mm3 (150-400); RDW Coefficient Variation 16.4 % (11.7-14.2); RDW Standard Deviation 54.7 fL (35.1-46.3); Red Blood Cell Count 4.75 M/mm3 (4.30-5.90); White Blood Cell Count 4.64 K/mm3 (4.00-11.30)
[2024-07-26 04:45] LABS: Albumin, Blood 3.1 g/dL (3.4-5.0); Anion Gap 11 mmol/L (3-11); Blood Urea Nitrogen 20 mg/dL (8-24); Bun/Creatinine Ratio 12.5 (12.0-20.0); CO2, Blood 25 mmol/L (21-32); Calcium, Blood 8.7 mg/dL (8.5-10.1); Chloride, Blood 105 mmol/L (98-108); Glomerular Filtration Rate 51 (60-); Glucose, Blood 156 mg/dL (70-99); Magnesium, Blood 1.9 mg/dL (1.6-2.4); Phosphorus, Blood 3.2 mg/dL (2.5-4.9); Potassium, Blood 4.4 mmol/L (3.5-5.5); Sodium, Blood 137 mmol/L (136-145)
--- NOTE | 2024-07-26 06:11 | NUR ---
SHIFT SUMMARY PATIENT A&O X4. PATIENT TOLERATING DIGOXIN WELL, HEART RATE IS STARTING TO TREND DOWN. MEDICATED PATIENT FOR CHRONIC BACK PAIN PER EMAR. PATIENT IS ASYMPTOMATIC WITH HEART RATE/RHYTHM. WILL CONTINUE TO MONITOR.
[2024-07-26] MEDS ORDERED: NS 1,000 ML IV ONE (06:50)
[2024-07-26] MEDS ORDERED: Benzocaine Oral Spray 0.5ML UD ONE (07:01)
--- NOTE | 2024-07-26 07:56 | NUR ---
TIME OUT WAS COMPLETED AT 0717. JN PROBE IN AT 0718. JN PROBE OUT AT 0724. 200J SYNCHRONISED SHOCK DELIVERED AT 0726 - PT TOLERATED WELL.
--- NOTE | 2024-07-26 07:58 | NUR ---
PT DENIES CHEST PAIN. WARM BLANKETS PROVIDED. CALL LIGHT IN REACH.
[2024-07-26] MEDS ORDERED: Magnesium Sulf 2 GM/Water 50ML 50 ML IV STA (08:19)
[2024-07-26] MEDS ORDERED: Furosemide 10 MG/ML 4ML Vial IV SCH ×2 (08:30→14:30)
--- NOTE | 2024-07-26 08:31 | NUR ---
PT DRANK WATER WITH NO ASPIRATION. PT ESCORTED BACK TO PCU 12 IN WHEELCHAIR.
[2024-07-26] MEDS ORDERED: Polyethylene Glycol 3350 17 gm PO PRN (08:45)
[2024-07-26] MEDS ORDERED: NS 250 ML IV PRN (08:45)
[2024-07-26] MEDS ORDERED: Losartan Potassium 50 MG Tab PO SCH (09:00)
[2024-07-26] MEDS ORDERED: Empagliflozin 10 MG TAB PO SCH (09:00)
[2024-07-26] MEDS ORDERED: Losartan Potassium 25 MG Tab PO SCH (09:00)
[2024-07-26] MEDS ORDERED: Docusate Sodium/Senna 1 Tab PO SCH (09:00)
[2024-07-26] MEDS ORDERED: Gabapentin 300 MG Cap PO SCH (09:00)
[2024-07-26] MEDS ORDERED: Lidocaine 4% 1 Patch TOP SCH (09:00)
[2024-07-26] MEDS ORDERED: buPROPion HCL 150 MG TAB.SR.12H PO SCH (09:00)
[2024-07-26] MEDS ORDERED: Atorvastatin 10 MG Tab PO SCH (09:00)
[2024-07-26] MEDS ORDERED: Amitriptyline HCl 25 MG Tab PO SCH (09:00)
[2024-07-26] MEDS ORDERED: Furosemide 10 MG/ML 4ML Vial IV ONE (14:30)
[2024-07-26 17:13] LABS: Bun/Creatinine Ratio 14.8 (12.0-20.0); Calcium, Blood 9.6 mg/dL (8.5-10.1); Creatinine, Blood 1.55 mg/dL (0.60-1.20); Magnesium, Blood 2.1 mg/dL (1.6-2.4)
[2024-07-27 00:35] VITALS: BP 115/95
[2024-07-27 04:21] VITALS: BP 127/90
--- NOTE | 2024-07-27 04:49 | NUR ---
SHIFT SUMMARY THIS RN ASSUMED CARE OF PATIENT AT 1900. PT A&O X4. INDEPENDENT WITH ADL'S. CALLING APPROPRIATELY. MEDICATED X1 FOR BACK/NECK PAIN. PT REMAINS IN SR WITH HR 70-80'S. DENIES CHEST PAIN/PRESSURE. BP STABLE. AFEBRILE. ON RA WITH SPO2 >92%. BED IN LOWEST POSITION AND CALL LIGHT WITHIN REACH. NO ACUTE CHANGES OVERNIGHT. THIS RN WILL REPORT TO ONCOMING DAYSHIFT RN.
[2024-07-27 06:58] LABS: BASOPHILS ABSOLUTE AUTO 0.03 K/mm3 (0.00-0.23); BASOPHILS PERCENT AUTO 0 % (0-2); EOSINOPHILS ABSOLUTE AUTO 0.01 K/mm3 (0.00-0.68); EOSINOPHILS PERCENT AUTO 0 % (0-6); Hematocrit 48.6 % (37.0-53.0); Hemoglobin 16.3 g/dL (13.5-17.5); IMMATURE GRAN ABSOLUTE AUTO 0.13 K/mm3 (0.00-0.10); IMMATURE GRAN PERCENT AUTO 1 % (0-1); LYMPHOCYTES ABSOLUTE AUTO 1.91 K/mm3 (0.84-5.20); LYMPHOCYTES PERCENT AUTO 14 % (21-46); MONOCYTES ABSOLUTE AUTO 0.97 K/mm3 (0.16-1.47); MONOCYTES PERCENT AUTO 7 % (4-13); Mean Corpuscular HGB 31.7 pg (26.0-34.0); Mean Corpuscular HGB Conc 33.5 g/dL (31.5-36.5); Mean Corpuscular Volume 95 fL (80-100); Mean Platelet Volume 10.3 fL (9.1-12.4); NEUTROPHILS ABSOLUTE AUTO 10.69 K/mm3 (1.96-9.15); NEUTROPHILS PERCENT AUTO 78 % (41-73); Platelet Count 276 K/mm3 (150-400); RDW Coefficient Variation 16.4 % (11.7-14.2); RDW Standard Deviation 56.3 fL (35.1-46.3); Red Blood Cell Count 5.14 M/mm3 (4.30-5.90); White Blood Cell Count 13.74 K/mm3 (4.00-11.30)
[2024-07-27 07:14] LABS: Bun/Creatinine Ratio 17.3 (12.0-20.0); Creatinine, Blood 1.56 mg/dL (0.60-1.20); Magnesium, Blood 1.9 mg/dL (1.6-2.4); Potassium, Blood 4.5 mmol/L (3.5-5.5)
[2024-07-27] MEDS ORDERED: Magnesium Sulf 2 GM/Water 50ML 50 ML IV ONE (07:35)
[2024-07-27] MEDS ORDERED: Furosemide 10 MG/ML 4ML Vial IV SCH (08:00)
[2024-07-27] MEDS ORDERED: Sacubitril/Valsartan 24 MG-26 MG Tab PO SCH (09:00)
[2024-07-27 09:18] VITALS: BP 128/102
[2024-07-27] MEDS ORDERED: ELIQUIS5 M2 PO (12:01)
[2024-07-27] MEDS ORDERED: SOAANZ20 M1 PO (12:02)
[2024-07-27] MEDS ORDERED: JARDIANCE10 MG PO (12:02)
[2024-07-27] MEDS ORDERED: ENTRESTO 24 MG1 EACH PO (12:02)
--- NOTE | 2024-07-27 12:42 | NUR ---
DISCHARGE SUMMARY PT A&Ox4, CALLS AND COMMUNICATES NEEDS APPROPRIATELY. IND IN ROOM. BP STABLE, SINUS 90's, DENIES CP/PRESSURE. SpO2> 92% RA, DENIES SOB. CONTINENT OF URINE AND BOWEL. MANAGED CHRONIC PAIN PER EMAR. DISCHARGE INSTRUCTIONS/EDUCATION PROVIDED. ALL PT BELONGINGS GATHERED. PT TAKEN OUT VIA WHEELCHAIR BY CLINICAL STAFF MEMBER AT APPROXIMATELY 1235.
== END 2024-07-27 12:54 | disposition home or self-care (01) | DRG 308 ==
LOC: PCU 10:15
PROVIDERS: Family Medicine; Student in an Organized Health Care Education/Training Program; ADMIT Internal Medicine
PROC: 5A2204Z Restoration of Cardiac Rhythm, Single (ICD-10-PCS; principal; 2024-07-26)
PROC: B24BZZ4 Ultrasonography of Heart with Aorta, Transesophageal (ICD-10-PCS; 2024-07-26)
DX: I48.91 Unspecified atrial fibrillation (principal); I50.23 Acute on chronic systolic (congestive) heart failure; I13.0 Hypertensive heart and chronic kidney disease with heart failure and stage 1 through stage 4 chronic kidney disease, or unspecified chronic kidney disease; F41.9 Anxiety disorder, unspecified; E78.5 Hyperlipidemia, unspecified; E83.42 Hypomagnesemia; R73.03 Prediabetes; Z88.8 Allergy status to other drugs, medicaments and biological substances; Z79.899 Other long term (current) drug therapy; Z79.01 Long term (current) use of anticoagulants; E66.01 Morbid (severe) obesity due to excess calories; M54.9 Dorsalgia, unspecified; G89.29 Other chronic pain; F41.0 Panic disorder [episodic paroxysmal anxiety]; N18.30 Chronic kidney disease, stage 3 unspecified; Z87.891 Personal history of nicotine dependence; F43.10 Post-traumatic stress disorder, unspecified; F32.A Depression, unspecified; Z98.890 Other specified postprocedural states; J44.9 Chronic obstructive pulmonary disease, unspecified; I47.29 Other ventricular tachycardia
CPT/HCPCS: 36415; 71045; 80048; 80053; 80069; 83735; 85025; 92960; 93005; 93010; 93312; 93325; A9270; J0282; J1160; J1200; J1940; J2704; J2919; J3475; J7030

== ENCOUNTER → 2024-08-01 | Outpatient (CLI) | payer MEDICARE, OTHER ==
[~2024-08-01] MED LIST changes: +ELIQUIS5 M2 PO; +ENTRESTO 24 MG1 EACH PO; +FURO40 PO; +JARDIANCE10 MG PO; +POTA10T PO; +SOAANZ20 M1 PO
== END | disposition home or self-care (01) ==
LOC: LAB 18:19 → LAB SHORT 18:19
DX: R35.0 Frequency of micturition (principal)
CPT/HCPCS: 87086